=== PATIENT | male | born 1995 | race African-American/Black ===

== ENCOUNTER 2018-08-12 18:53 | Emergency (ER) | payer OTHER, SELFPAY ==
[2018-08-12 19:16] LABS: Bilirubin Negative (Negative); Blood, Urine Negative (Negative); Clarity CLEAR (Clear); Glucose, Urine (Dipstick) Negative (Negative); Leukocyte Trace (Negative); Nitrite Negative (Negative); Protein, Urine (Dipstick) Trace mg/dL (Neg-Trace); Specific Gravity, Urine 1.031 (1.002-1.036); pH, Urine 7.5 (5.0-9.0)
[2018-08-12 19:18] LABS: Bacteria/HPF None Seen HPF (None Seen); Hyaline Casts/LPF 0-3 HYALINE CAST LPF (0-3 Hyaline); RBC/HPF 0-3 HPF (0-3); Squamous Epithelial 0-3 HPF (0-3)
[2018-08-12] MEDS ORDERED: cefTRIAXone\\ROCEPHIN 250 MG VIAL ONE (20:01)
[2018-08-12] MEDS ORDERED: Azithromycin 250 MG TAB ONE (20:01)
[2018-08-12] MEDS ORDERED: Lidocaine 1% (PF) 30 ML VIAL ONE (20:02)
[2018-08-13 22:42] LABS: Chlamydia by PCR Not Detected (NotDetected); GC by PCR DETECTED (NotDetected)
== END 2018-08-12 20:23 | disposition home or self-care (01) ==
LOC: ERS 18:53
DX: Z20.2 Contact with and (suspected) exposure to infections with a predominantly sexual mode of transmission (principal)
CPT/HCPCS: 81003; 81015; 87491; 87591; 96372; J0696; J2001